=== PATIENT | female | born 1955 | race Caucasian/White ===

== ENCOUNTER → 2016-09-23 | Outpatient (CLI) | payer OTHER ==
[~2016-09-23] MED LIST: CHOL100010 PO; DSY50 PO; OXYC-57 PO; TERI600S SQ; TRAMTAB5 PO; [UNRECOGNIZED DRUG - MIXTURE]
[2016-09-23 18:45] LABS: URINE APPEARANCE CLOUDY (CLEAR); URINE BILIRUBIN NEG (NEG); URINE COLOR YELLOW; URINE NITRITE POS (NEG); URINE SPECIFIC GRAVITY 1.009 (1.000-1.030); UROBILINOGEN NEG (NEG)
[2016-09-23 19:10] LABS: MANUAL MICROSCOPIC REQUIRED? NO; REVIEW REQ? NO
== END | disposition home or self-care (01) ==
LOC: C.LABMFLN 11:41
PROVIDERS: ATTEND Allergy & Immunology Allergy
DX: R39.9 Unspecified symptoms and signs involving the genitourinary system (principal)

== ENCOUNTER → 2016-11-08 | Outpatient (CLI) | payer OTHER ==
--- NOTE | 2016-11-09 13:03 | MAMMOGRAPHY REPORT ---
BILATERAL DIGITAL SCREENING MAMMOGRAM TOMOSYNTHESIS WITH CAD: 11/08/2016 CLINICAL HISTORY: Routine screening examination. TECHNIQUE: Breast tomosynthesis in addition to standard 2D mammography was performed. Current study was also evaluated with a Computer Aided Detection (CAD) system. COMPARISON: Comparison is made to exams dated: 11/04/2015 mammogram, 10/25/2013 mammogram, 10/30/2014 m ammogram, 11/01/2012 ultrasound, 10/01/2010 mammogram, and 09/24/2009 mammogram - [facility]. BREAST COMPOSITION: The tissue of both breasts is heterogeneously dense, which may obscure small ma sses. FINDINGS: There is possible architectural distortion in the lateral anterior left breast, 4.3 cm po sterior to the nipple, only seen on the CC view (CC slice 16), for which additional spot compression to the symphysis HD views and possibly ultrasound are recommended. There are diffuse bilateral punctate microcalcifications and a few benign rim calcifications. No oth er suspicious mass, architectural distortion or cluster of microcalcifications is seen. IMPRESSION: ACR BI-RADS CATEGORY 0: INCOMPLETE EVALUATION: NEED ADDITIONAL IMAGING EVALUATION The possible architectural distortion in the lateral left breast needs additional evaluation. The patient will be called to schedule an appointment. Approximately 10% of breast cancers are not detected with mammography. A negative mammographic repor t should not delay biopsy if a clinically suggestive mass is present. Latia Hartman M.D. ay/:11/08/2016 21:29:21 Foreman/Pile Driving And Erection: Angélica MARCUS(Shereen)(Chandler), [facility] letter sent: Addl Imaging 0 BI-RADS Code: ACR BI-RADS Category 0: Incomplete Evaluation: Need Additional Imaging Evaluation
== END | disposition home or self-care (01) ==
LOC: C.MAMM 09:37
PROVIDERS: ATTEND Internal Medicine Pulmonary Disease
DX: Z12.31 Encounter for screening mammogram for malignant neoplasm of breast (principal)

== ENCOUNTER → 2016-11-17 | Outpatient (CLI) | payer OTHER ==
[2016-11-17 13:28] LABS: URINE APPEARANCE CLEAR (CLEAR); URINE BILIRUBIN NEG (NEG); URINE COLOR YELLOW; URINE EPITHELIAL CELL AUTO 20-30 /lpf (0-5); URINE NITRITE NEG (NEG); URINE SPECIFIC GRAVITY 1.006 (1.000-1.030); UROBILINOGEN NEG (NEG); ZZUR CULT IF INDIC CLEAN CATCH YES
[2016-11-17 13:37] LABS: MANUAL MICROSCOPIC REQUIRED? NO; REVIEW REQ? NO
== END | disposition home or self-care (01) ==
LOC: C.LABMFLN 08:40
PROVIDERS: ATTEND Internal Medicine Pulmonary Disease
DX: N39.0 Urinary tract infection, site not specified (principal)

== ENCOUNTER → 2016-11-22 | Outpatient (CLI) | payer OTHER ==
--- NOTE | 2016-11-23 08:01 | MAMMOGRAPHY REPORT ---
UNILATERAL LEFT DIGITAL DIAGNOSTIC MAMMOGRAM TOMOSYNTHESIS AND TARGETED LEFT ULTRASOUND: 11/22/2016 CLINICAL HISTORY: 60-year-old woman called back from screening mammography for a questionable area o f architectural distortion in the left breast. Family history of breast cancer = mother and aunts. TECHNIQUE: Spot compression CC and MLO tomosynthesis images of the left breast were obtained. COMPARISON: Comparison is made to exams dated: 11/08/2016 mammogram, 11/04/2015 mammogram, 10/30/2014 mammogram, 10/25/2013 mammogram, 11/01/2012 ultrasound, and 09/24/2009 mammogram - [facility]. BREAST COMPOSITION: The tissue of the left breast is heterogeneously dense, which may obscure small masses. FINDINGS: There is no definite persistent architectural distortion on the spot compression CC and ML O views of the left breast. No obvious mass or cluster of suspicious microcalcifications. Further evaluation with ultrasound was performed. Real-time high-resolution sonographic evaluation was performed in the left breast. In the 2:00 axis , 3 cm from the nipple, there is a round hypoechoic solid mass with circumscribed borders and advisory internship al punctate reflectors. It measures 6.9 x 6.0 x 7.0 mm. There is a thin curvilinear rim seen super iorly and this could represent the coarse benign rim calcification seen mammographically. In the 11 :00 periareolar left breast, there is an oval parallel circumscribed hypoechoic solid-appearing mass with internal echogenic septum. This measures 5.8 x 2.9 x 7.5 mm and most likely represents a shubham gn fibroadenoma. In anechoic simple cyst is identified in the 10:00 left breast, 3 cm from the nipp le, measuring 3.9 x 4.6 x 3.8 mm. No definite sonographic correlate was seen to the questionable ef facing architectural distortion in the lateral left breast identified mammographically. IMPRESSION: ACR BI-RADS CATEGORY 0: INCOMPLETE EVALUATION: NEED ADDITIONAL IMAGING EVALUATION, TAR GETED ULTRASOUND ACR BI-RADS CATEGORY 0: INCOMPLETE EVALUATION: NEED ADDITIONAL IMAGING EVALUATION There is probable effacement of the possible architectural distortion in the lateral left breast monse mographically, without a correlate seen on the corresponding MLO spot compression views and no defin ite sonographic correlate identified. Three benign appearing solid and cystic masses are identified on ultrasound. However, given the strong family history of breast cancer, this finding remains ind eterminate, and further evaluation with a breast MRI is recommended to exclude the possibility of a subtle enhancing mass. These results and recommendations were discussed with the patient at the time of the exam. Approximately 10% of breast cancers are not detected with mammography. A negative mammographic repor t should not delay biopsy if a clinically suggestive mass is present. Latia Hartman M.D. ay/:11/22/2016 15:46:02 Yield Improvement Engineer: Erika MARCUS(R)(Chandler), [facility] letter sent: Addl Imaging 0 BI-RADS Code: ACR BI-RADS Category 0: Incomplete Evaluation: Need Additional Imaging Evaluation Ul trasound BI-RADS: ACR BI-RADS Category 0: Incomplete Evaluation: Need Additional Imaging Evaluation
== END | disposition home or self-care (01) ==
LOC: C.MAMM 08:33
PROVIDERS: ATTEND Internal Medicine Pulmonary Disease
DX: N63 Unspecified lump in breast (principal); Z80.3 Family history of malignant neoplasm of breast

== ENCOUNTER → 2016-11-26 | Outpatient (CLI) | payer OTHER ==
[~2016-11-26] MED LIST changes: +GADAVIST IV PRN
--- NOTE | 2016-11-29 14:00 | MAMMOGRAPHY REPORT ---
BREAST MRI OF BOTH BREASTS : 11/26/2016 CLINICAL HISTORY: Questionable architectural distortion seen within the left lateral breast mammogra phically, without a sonographic correlate evident. Family history of breast cancer. COMPARISON: Comparison is made to exams dated: 11/08/2016 mammogram, 11/04/2015 mammogram, 10/30/2014 mammogram, 10/25/2013 mammogram, and 11/01/2012 mammogram - [facility]. Technique: The patient was placed prone in a dedicated breast imaging coil. Precontrast axial T1-we ighted, axial T2-weighted fat saturation, and axial T1-weighted fat saturation images were obtained. After the administration of 6.6 mL of Gadavist IV contrast, sequential T1-weighted fat saturation images were obtained. Subtraction images were obtained of the dynamic contrast enhanced sequences, and 3-D reformations were performed. The [employer] software was used for kinetic analysis. Findings: There is mild background enhancement involving bilateral breasts. There are a few round circumscrib ed T1 hyperintense, nonenhancing masses seen within both breasts, consistent with benign complicated cysts. There are no suspicious enhancing masses or areas of abnormal non-mass enhancement within e ither breast. Specifically, there is no abnormal enhancing mass in the left lateral breast in the r egion of the possible architectural distortion seen mammographically. Given no corresponding MRI ab normality and given effacement of the finding on prior spot compression views, the finding is benign and felt to represent normal fibroglandular tissue. There is no evidence of axillary adenopathy. The chest wall structures are negative. Extramammary soft tissues are unremarkable. IMPRESSION: ACR BI-RADS CATEGORY 2: BENIGN No MRI evidence of malignancy in either breast. No MRI abnormality seen in the region of the questi onable architectural distortion in the left lateral breast mammographically. Given the lack of MRI abnormality and given the effacement on prior spot compression views, findings are benign and felt t o represent normal fibroglandular tissue. Return to annual mammogram screening schedule is recommend ed. Kristie Schultz M.D. /:11/26/2016 16:24:44 Supervisor [employer]: viticulturist, [facility] letter sent: Normal 1/2 BI-RADS Code: ACR BI-RADS Category 2: Benign
== END | disposition home or self-care (01) ==
LOC: C.MRI 06:10
PROVIDERS: ATTEND Internal Medicine Pulmonary Disease
DX: N64.89 Other specified disorders of breast (principal); Z80.3 Family history of malignant neoplasm of breast

== ENCOUNTER → 2017-08-23 | Outpatient (CLI) | payer OTHER ==
[~2017-08-23] MED LIST changes: -GADAVIST IV PRN
[2017-08-23 12:57] LABS: BASO % 0.4 %; BASO ABS # 0.03 K/uL (0-0.2); COMPLETE YES; EOS % 3.5 %; HEMATOCRIT 39.3 % (37-47); IG% 0.1 %; LYMPH % 21.5 %; LYMPH ABS # 1.53 K/uL (1.2-3.4); MEAN CELL VOLUME 97.5 fL (80-100); MEAN CORPUSCULAR HEMOGLOBIN 31.3 pg (25-34); MEAN CORPUSCULAR HGB CONC 32.1 g/dl (32-36); MEAN PLATELET VOLUME 9.8 fL (7.4-10.4); MONO % 8.7 %; NEUT % 65.8 %; PLATELET COUNT 335 K/uL (130-400); RED BLOOD COUNT 4.03 M/uL (4.2-5.4); WHITE BLOOD COUNT 7.12 K/uL (4.8-10.8)
[2017-08-23 13:22] LABS: ALB/GLOB RATIO 1.1 (0.9-2); ALT/SGPT 29 U/L (12-78); AST/SGOT 18 U/L (15-37); BLOOD UREA NITROGEN 16 mg/dl (7-18); BUN/CREATININE RATIO 22.1 (10-20); CALCIUM 9.5 mg/dl (8.5-10.1); CARBON DIOXIDE 29 mmol/L (21-32); CHLORIDE 105 mmol/L (98-107); CREATININE 0.74 mg/dl (0.60-1.20); GLUCOSE 89 mg/dl (70-99); POTASSIUM 3.9 mmol/L (3.5-5.1); SODIUM 137 mmol/L (136-145)
[2017-08-23 13:33] LABS: ALKALINE PHOSPHATASE 75 U/L (45-117); CHOLESTEROL 173 mg/dl (0-200); CHOLESTEROL/HDL RATIO 2.7; HDL CHOLESTEROL 65 mg/dl; LDL CHOLESTEROL CALCULATED 95 mg/dl; THYROID STIMULATING HORMONE 0.626 uIu/ml (0.300-4.500); TRIGLYCERIDES 63 mg/dl (0-150); VERY LOW DENSITY LIPOPROT CALC 13 mg/dl
== END | disposition home or self-care (01) ==
LOC: C.LABMFLN 10:37
PROVIDERS: ATTEND Internal Medicine Pulmonary Disease
DX: G47.00 Insomnia, unspecified (principal); E78.5 Hyperlipidemia, unspecified; S32.010A Wedge compression fracture of first lumbar vertebra, initial encounter for closed fracture; X58.XXXA Exposure to other specified factors, initial encounter; M81.0 Age-related osteoporosis without current pathological fracture; Z87.19 Personal history of other diseases of the digestive system

== ENCOUNTER → 2017-10-14 | Outpatient (CLI) | payer OTHER | END | disposition home or self-care (01) | LOC: C.LABMFLN 10:30 | PROVIDERS: ATTEND Internal Medicine Rheumatology | DX: S32.010A Wedge compression fracture of first lumbar vertebra, initial encounter for closed fracture (principal); M81.0 Age-related osteoporosis without current pathological fracture; E55.9 Vitamin D deficiency, unspecified; X58.XXXA Exposure to other specified factors, initial encounter ==

== ENCOUNTER → 2017-11-10 | Outpatient (CLI) | payer OTHER ==
--- NOTE | 2017-11-11 14:43 | MAMMOGRAPHY REPORT ---
BILATERAL DIGITAL SCREENING MAMMOGRAM TOMOSYNTHESIS WITH CAD: 11/10/2017 CLINICAL HISTORY: Routine screening. Patient has no complaints. TECHNIQUE: Breast tomosynthesis in addition to standard 2D mammography was performed. Current study was also evaluated with a Computer Aided Detection (CAD) system. COMPARISON: Comparison is made to exams dated: 11/26/2016 breast MRI, 11/22/2016 ultrasound, 11/08/2016 mammogram, 11/04/2015 mammogram, 10/30/2014 mammogram, and 10/25/2013 mammogram - [facility]. BREAST COMPOSITION: The tissue of both breasts is heterogeneously dense, which may obscure small mas ses. FINDINGS: There are stable punctate microcalcifications throughout the left greater than right breast . A benign rim calcification in the left upper outer quadrant. No suspicious mass, focal area of ar chitectural distortion or cluster of new, suspicious microcalcifications is seen. IMPRESSION: ACR BI-RADS CATEGORY 1: NEGATIVE There is no mammographic evidence of malignancy. A 1 year screening mammogram is recommended. The pa tient will receive written notification of the results. Approximately 10% of breast cancers are not detected with mammography. A negative mammographic report should not delay biopsy if a clinically suggestive mass is present. Latia Hartman M.D. ay/:11/10/2017 19:44:51 Valve Grinder: Catrina ANGULO)(Chandler), [facility] letter sent: Normal 1/2 BI-RADS Code: ACR BI-RADS Category 1: Negative
== END | disposition home or self-care (01) ==
LOC: C.MAMM 14:22
PROVIDERS: ATTEND Internal Medicine Pulmonary Disease
DX: Z12.31 Encounter for screening mammogram for malignant neoplasm of breast (principal)

== ENCOUNTER 2023-07-24 18:05 | Observation (INO) ==
[2023-07-24] MEDS ORDERED: SODIUM CHLORIDE 0.9% 1,000 ML IV ONE (18:15)
--- NOTE | 2023-07-24 18:24 | Emergency Department Note ---
Impression & Plan Abdominal pain, Constipation ED Provider Note NAME: BRITANY ROY AGE: 67 SEX: F : 1955 ARRIVES VIA: Walk-In INFORMANT: Patient ED PROVIDER(S): Pancho Pradhan DO CHIEF COMPLAINT: abdominal pain HPI: Patient is a 67-year-old female who presents to the ER for abdominal pain. She notes that this has been present for the past 8 days. She has tried Dulcolax, several enemas, MiraLAX and has not been successful. She was seen and evaluated here and discharged following a CT. She denies any headache or change in vision. No chest pain or shortness of breath. She notes her pain is diffuse throughout her abdomen and in the left lower quadrant. No dysuria, urgency, or frequency. No other exacerbating or remitting factors. Additional history was obtained by/from the and other family members who are present at bedside. ADDITIONAL HISTORY OBTAINED: Per HPI Chronic Medical/Social Conditions Affecting Care: Per HPI PAST MEDICAL HISTORY:See Below PAST SURGICAL HISTORY:See Below FAMILY HISTORY:See Below SOCIAL HISTORY:See Below HOME MEDICATIONS:See Below ALLERGIES:See Below VITALS:See Below PHYSICAL EXAMINATION: GENERAL: Sitting up in bed, alert, well appearing, well nourished, no distress, non-toxic EYE EXAM: normal conjunctiva. OROPHARYNX: mucous membranes are moist LUNGS: Clear to auscultation. Normal chest wall mechanics HEART: no murmurs, S1 normal and S2 normal ABDOMEN: abdomen soft, TTP in l mid abd , normo-active bowel sounds, no masses, no rebound or guarding. UPPER EXTREMITIES: upper extremities are grossly normal. LOWER EXTREMITIES: No pitting edema. NEURO EXAM: Normal sensorium, cranial nerves II-XII grossly intact, normal speech, no gross weakness of arms, no gross weakness of legs. MEDICAL DECISION MAKING: Patient is a 67-year-old female who presents ER for left mid abdominal pain. IV was established blood work was obtained. Labs show no significant leukocytosis and mild anemia 11.7 which is consistent with previous. BMP with mild hypokalemia 3.3. LFTs bilirubin was unremarkable. Lipase was normal. UA was clean. CT abdomen pelvis was repeated and showed diverticulitis versus constipation with questionable pancreatic mass. Patient was updated with the significant pain she was having she was given an soapsuds enema, mag citrate, and lactulose with no improvement. She notes that she has tried enemas at home, Dulcolax, MiraLAX in combination with Gatorade and has been unsuccessful. Pain is getting worse. With this I discussed the case with Rachel Browne for further inpatient management treatment. External Records Reviewed: Saw neurology on 05/24 Dr. Zuniga for back pain Consults/Care Managements Discussions: Per MDM Triage Nursing notes reviewed. Limited review of prior medical records performed Vital Signs: reviewed and remarkable for HTN and tachy Differential diagnosis: Differential diagnoses includes but is not limited to gastritis, peptic ulcer disease, GERD, gallbladder disease, pancreatitis, small bowel obstruction, appendicitis, diverticulitis, hernia, urinary tract infection, torsion, perforation, trauma, infectious. ER treatment provided: See below Diagnostics interpreted by me include EKG and cardiac monitoring as listed below: -Cardiac Monitoring: An order was placed for continuous cardiac monitoring. The monitor shows a rate of 101 with sinus rhythm. -ECG: none -Laboratory studies:Interpreted by me as stated above in MDM and shown below. Imaging studies: Xrays: As interpreted by me:none CTs show: CT abdomen pelvis per my review showed no obvious obstruction CT abdomen pelvis per radiology showed constipation Procedures:none Critical Care: None Past Med/Surg History Medical History Sensory polyneuropathy Bilateral hip pain Osteoporosis Hyperlipidemia Surgical History History of benign breast biopsy History of endometrial ablation History of wisdom tooth extraction H/O colonoscopy (~2014) History of total abdominal hysterectomy removal of both ovaries S/P tonsillectomy History of section x2 Family History Mother Breast cancer Father , age 72 of an infection Hypertension Stroke Other No family history of adverse response to anesthesia Social History Smoking Status: Never smoker Tobacco Type: Cigarettes Second Hand Exposure: No; Do You Dip or Chew Tobacco: No; Hx Alcohol Use: No Hx Substance Use: No Preferred Language: Icelandic Communication Ability: Effective Hatch Tender Required: No Beliefs That Will Affect Care: None marital status: Current Living Situation: Spouse current occupational status: employed 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 Feels Safe at Home: Yes Assistive Devices: Contacts and Glasses Allergies Allergies Allergy/AdvReac Type Severity Reaction Status Date / Time amoxicillin Allergy Intermediate Hives Verified 07/24/23 20:38 clavulanic acid Allergy Intermediate Hives Verified 07/24/23 20:38 Penicillins Allergy Intermediate Hives Verified 07/24/23 20:38 Home Meds Home Medications Medication Instructions Recorded Confirmed calcium carb-vit D3-minerals 600 1 tab PO HS 04/13/19 07/24/23 mg calcium-200 unit tablet (Calcium 600 + Minerals) multivitamin (Multiple Vitamins 1 tab PO QAM 10/14/21 07/24/23 tablet) L.acidophil-L.casei-B.bifid-B.longum-FOS 1 cap PO QAM 12/17/22 07/24/23 2 billion cell-50 mg capsule (Probiotic Blend) cholecalciferol (vitamin D3) 50 50 mcg PO HS 12/17/22 07/24/23 mcg (2,000 unit) tablet (Vitamin D3) docusate sodium 100 mg tablet 200 mg PO HS 12/17/22 07/24/23 (Stool Softener) fiber 1 cap PO HS 12/17/22 07/24/23 cyanocobalamin (vitamin B-12) 1,000 mcg PO QAM 07/22/23 07/24/23 1,000 mcg tablet (Vitamin B-12) Previous Rx's Medication Instructions Recorded pravastatin 20 mg tablet 20 mg PO QAM #90 tabs 01/20/23 tramadol 37.5 mg-acetaminophen 325 1 tab PO Q6H PRN pain #120 tabs 02/17/23 mg tablet nortriptyline 50 mg capsule 100 mg (2 x 50 mg) PO HS 30 days 05/17/23 #60 caps oxycodone-acetaminophen 5 mg-325 1 tab PO Q6H PRN pain #30 tabs 06/24/23 mg tablet Results & Data (ED) Vital Signs Vital Signs - 24 hr 07/24/23 18:09 07/24/23 18:40 07/24/23 18:41 Temperature 36.5 C Temperature Source Temporal Artery Scan Pulse Rate 101 H 86 88 Pulse Rate [Bilateral Apical] Pulse Rhythm Regular Respiratory Rate 20 20 Respiratory Effort / Characteristics Non-Labored Spontaneous Respiratory Depth Normal Respiratory Pattern Regular Blood Pressure 166/72 H Blood Pressure [Right Arm] Blood Pressure Mean 103 Blood Pressure Mean [Right Arm] Pulse Oximetry 94 96 Oxygen Delivery Method Room Air Room Air Sepsis Recent Fever Within 48 Hours No Sepsis New/Unexplained Change in Mental Status No Sepsis Action Taken by Nursing No Action Required 07/24/23 19:03 07/24/23 20:26 Temperature Temperature Source Pulse Rate Pulse Rate [Bilateral Apical] 82 80 Pulse Rhythm Respiratory Rate 20 20 Respiratory Effort / Characteristics Respiratory Depth Respiratory Pattern Blood Pressure Blood Pressure [Right Arm] 175/114 H 161/96 H Blood Pressure Mean Blood Pressure Mean [Right Arm] 134 117 Pulse Oximetry 94 98 Oxygen Delivery Method Room Air Room Air Sepsis Recent Fever Within 48 Hours Sepsis New/Unexplained Change in Mental Status Sepsis Action Taken by Nursing Laboratory Data 07/24/23 18:39 07/24/23 18:39 Lab Results 07/24/23 07/24/23 Range/Units 18:28 18:39 WBC 8.06 (4.8-10.8) K/ul RBC 3.69 L (4.20-5.40) M/uL Hgb 11.7 L (12.0-16.0) g/dl Hct 36.3 L (37.0-47.0) % MCV 98.4 (80.0-100.0) fL MCH 31.7 (25.0-34.0) pg MCHC 32.2 (32.0-36.0) g/dL RDW Std Deviation 45.9 (36.4-46.3) fL RDW Coeff of Melita 12.8 (11.5-14.5) % Plt Count 326 (130-400) K/uL MPV 9.5 (9.4-12.4) fL Immature Gran % (Auto) 0.1 % Neut % (Auto) 77.6 % Lymph % (Auto) 14.0 % [place] % (Auto) 5.5 % Eos % (Auto) 2.2 % Baso % (Auto) 0.6 % Neut # (Auto) 6.25 (1.40-6.50) K/uL Lymph # (Auto) 1.13 L (1.20-3.40) K/uL [place] # (Auto) 0.44 (0.11-0.59) K/uL Eos # (Auto) 0.18 (0.00-0.50) K/uL Baso # (Auto) 0.05 (0.00-0.20) K/uL Immature Gran # (Auto) 0.01 (0.01-0.20) K/uL Sodium 138 (136-145) mmol/L Potassium 3.3 L (3.5-5.1) mmol/L Chloride 102 (98-107) mmol/L Carbon Dioxide 29 (21-32) mmol/L Anion Gap 7 (3-11) BUN 13 (6-23) mg/dl Creatinine 0.70 (0.6-1.2) mg/dl Est Cr Clr Drug Dosing 72.1 ml/min Est GFR ( Amer) 105.4 ml/min Est GFR (Non-Af Amer) 90.9 ml/min BUN/Creatinine Ratio 18.6 (10-20) Glucose 158 H (70-99(Fasting)) mg/dl Calcium 9.4 (8.6-10.3) mg/dl Total Bilirubin 0.5 (0.2-1.0) mg/dl AST 34 (13-39) U/L ALT 37 (7-52) U/L Alkaline Phosphatase 81 (34-104) U/L Total Protein 7.3 (6.0-8.3) gm/dl Albumin 4.1 (3.4-5.0) gm/dl Globulin 3.2 (2.5-4.0) gm/dl Albumin/Globulin Ratio 1.3 (0.9-2) Lipase 5 L (11-82) U/L Urine Color Yellow Urine Appearance Clear (Clear) Urine pH 5.5 (4.5-7.5) Ur Specific [place] 1.008 (1.000-1.030) Urine Protein Negative (Negative) Urine Glucose (UA) Negative (Negative) Urine Ketones Negative (Negative) Urine Blood 1+ H (Negative) Urine Nitrite Negative (Negative) Urine Bilirubin Negative (Negative) Urine Urobilinogen Negative (Negative) Ur Leukocyte Esterase Trace H (Negative) Urine WBC (Auto) 1-5 (0-5) /hpf Urine RBC (Auto) 0-4 (0-4) /hpf U Hyaline Cast (Auto) 0 (0-5) /lpf U Epithel Cells (Auto) 0-5 (0-5) /lpf Urine Bacteria (Auto) Negative (Negative) Administered Medications Discontinued Medications Sodium Chloride (Nss) 1,000 mls @ 999 mls/hr IV .Q1H1M ONE Stop: 07/24/23 19:15 Last Infusion: 07/24/23 19:50 Dose: Infused Documented By: Admin: 07/24/23 18:37 Dose: 999 mls/hr Documented By: SOTO Lactulose (Lactulose Syrup 30 Gm/45 Ml Udp) 30 gm PO NOW STA Stop: 07/24/23 19:27 Last Admin: 07/24/23 20:21 Dose: 30 gm Documented By: XANDER Magnesium Citrate (Magnesium Citrate 296 Ml/Btl) 296 ml PO NOW STA Stop: 07/24/23 18:29 Last Admin: 07/24/23 18:36 Dose: 296 ml Documented By: SOTO Imaging Data Radiologist's Impression: Abdomen/Pelvis CT 07/24/23 18:15 CT abd pelvis wo con CLINICAL HISTORY: diffuse abd pain TECHNIQUE: Helical axial images of the abdomen and pelvis were obtained. Automated dose lowering techniques and/or adjustment according to patient size were utilized for this exam. This exam was performed without intravenous contrast. CT DOSE: 937.9 mGy.cm COMPARISON: Comparison is made to CT abdomen pelvis 07/22/2023 FINDINGS: Lower chest: Bibasilar atelectasis versus scarring is seen. Liver: There is an ill-defined hypodensity in the liver measuring approximately 33 mm, compatible with previously noted hemangioma. Gallbladder and biliary tree: Layering radiodense material is seen in the dependent portion of the likely representing sludge. There is enlargement of the common bile duct measuring approximately 13 mm in diameter. Pancreas: Unremarkable, no focal lesions. Spleen: Unremarkable. Adrenals: Unremarkable. Kidneys and ureters: Unremarkable. Bladder: Limited evaluation due to underdistention. Reproductive organs: Unremarkable. Bowel: Numerous diverticula are seen in a redundant sigmoid. There is wall thickening and vascular prominence about the distal sigmoid colon. A large stool burden is seen. The appendix appears unremarkable. There is a dtxih-dh-[id number] hiatal hernia. Lymph nodes Retroperitoneal: Unremarkable. Pelvic: Unremarkable. Mesenteric: Subcentimeter lymph nodes are noted. Peritoneum: Small free fluid is seen in the pelvis. No pneumoperitoneum or drainable fluid collections. Vessels: Unremarkable. Abdominal wall: Unremarkable. Bones: Unremarkable. IMPRESSION: 1. Redemonstration of inflammation about the distal sigmoid colon which may represent stercoral colitis versus diverticulitis without evidence of perforation or abscess. 2. Partial visualization of hepatic hemangioma. 3. Prominence of the biliary system is again noted. If there is clinical concern, ERCP can be performed to exclude underlying obstruction. ACT 112: Negative or not required by law. Electronically signed by: Kevyn Arias M.D. 07/24/2023 7:18 PM Discharge Plan Visit Data Chief Complaint: Constipation Stated Complaint: CONSTIPATION FOR 7-8 DAYS ED Provider: Pancho Pradhan Discharge Problem: Abdominal pain, Constipation Forms Stand Alone Forms: [facility] [employer] Prescriptions Prescriptions: No Action Calcium 600 + Minerals 600 mg calcium- 200 unit tablet 1 tab PO HS tramadol-acetaminophen 37.5-325 mg tablet 1 tab PO Q6H PRN (Reason: pain) Qty: 120 5RF Rx Instructions: OK to fill early nortriptyline 50 mg capsule 100 mg PO HS 30 Days Qty: 60 5RF oxycodone-acetaminophen 5-325 mg tablet 1 tab PO Q6H PRN (Reason: pain) Qty: 30 0RF multivitamin [Multiple Vitamins] Tablet 1 tab PO QAM pravastatin 20 mg tablet 20 mg PO QAM Qty: 90 3RF cyanocobalamin (vitamin B-12) [Vitamin B-12] 1,000 mcg tablet 1,000 mcg PO QAM docusate sodium [Stool Softener] 100 mg Tablet 200 mg PO HS fiber Capsule 1 cap PO HS cholecalciferol (vitamin D3) [Vitamin D3] 50 mcg (2,000 unit) Tablet 50 mcg PO HS Probiotic Blend 2 billion cell-50 mg Capsule 1 cap PO QAM Rx Instructions: give with meal/snack Referrals Referrals: Ashutosh Villarreal MD [Primary Care Provider] - Discharge Problem: Abdominal pain Qualifiers: Abdominal location: unspecified location Qualified Code(s): R10.9 - Unspecified abdominal pain Constipation Qualifiers: Constipation type: unspecified constipation type Qualified Code(s): K59.00 - Constipation, unspecified
[2023-07-24] MEDS ORDERED: MAGNESIUM CITRATE 296 ML/BTL PO STA (18:28)
[2023-07-24 18:42] LABS: Appearance Urine Clear (Clear); Bacteria Urine Automated Negative (Negative); Bilirubin Urine Negative (Negative); Blood Urine 1+ (Negative); Cast Urine Automated 0 /lpf (0-5); Color Urine Yellow; Epithelial Cell Urine Auto 0-5 /lpf (0-5); Glucose Urine UA Negative (Negative); Ketones Urine Negative (Negative); Leukocyte Esterase Urine Trace (Negative); Nitrite Urine Negative (Negative); Protein Urine Negative (Negative); RBC Urine Automated 0-4 /hpf (0-4); Specific Gravity Urine 1.008 (1.000-1.030); Urobilinogen Urine Negative (Negative); pH Urine 5.5 (4.5-7.5)
[2023-07-24 18:56] LABS: Basophils # (auto) 0.05 K/uL (0.00-0.20); Basophils % (auto) 0.6 %; Eosinophils # (auto) 0.18 K/uL (0.00-0.50); Eosinophils % (auto) 2.2 %; Hematocrit (blood only) 36.3 % (37.0-47.0); Hemoglobin 11.7 g/dl (12.0-16.0); Immature Granulocytes # (auto) 0.01 K/uL (0.01-0.20); Immature Granulocytes % (auto) 0.1 %; Lymphocytes # (auto) 1.13 K/uL (1.20-3.40); Mean Corpuscular Hemoglobin 31.7 pg (25.0-34.0); Mean Corpuscular Hgb Conc 32.2 g/dL (32.0-36.0); Mean Corpuscular Volume 98.4 fL (80.0-100.0); Mean Platelet Volume 9.5 fL (9.4-12.4); Monocytes # (auto) 0.44 K/uL (0.11-0.59); Monocytes % (auto) 5.5 %; Neutrophils # (auto) 6.25 K/uL (1.40-6.50); Neutrophils % (auto) 77.6 %; Platelet Count 326 K/uL (130-400); RDW Coefficient of Variation 12.8 % (11.5-14.5); RDW Standard Deviation 45.9 fL (36.4-46.3); Red Blood Count 3.69 M/uL (4.20-5.40); White Blood Count 8.06 K/ul (4.8-10.8)
[2023-07-24 19:15] LABS: Albumin Globulin Ratio 1.3 (0.9-2); Albumin Level 4.1 gm/dl (3.4-5.0); BUN Creatinine Ratio 18.6 (10-20); Bilirubin,Total 0.5 mg/dl (0.2-1.0); Calcium 9.4 mg/dl (8.6-10.3); Creatinine Clr Calc Pharmacy 72.1 ml/min; Est GFR (African American) 105.4 ml/min; Est GFR (Non-African American) 90.9 ml/min; Globulin 3.2 gm/dl (2.5-4.0); Potassium 3.3 mmol/L (3.5-5.1); Total Protein 7.3 gm/dl (6.0-8.3)
--- NOTE | 2023-07-24 19:20 | CT Scan Report ---
CT abd pelvis wo con CLINICAL HISTORY: diffuse abd pain TECHNIQUE: Helical axial images of the abdomen and pelvis were obtained. Automated dose lowering tech niques and/or adjustment according to patient size were utilized for this exam. This exam was perfor med without intravenous contrast. CT DOSE: 937.9 mGy.cm COMPARISON: Comparison is made to CT abdomen pelvis 07/22/2023 FINDINGS: Lower chest: Bibasilar atelectasis versus scarring is seen. Liver: There is an ill-defined hypodensity in the liver measuring approximately 33 mm, compatible wit h previously noted hemangioma. Gallbladder and biliary tree: Layering radiodense material is seen in the dependent portion of the li raad representing sludge. There is enlargement of the common bile duct measuring approximately 13 mm in diameter. Pancreas: Unremarkable, no focal lesions. Spleen: Unremarkable. Adrenals: Unremarkable. Kidneys and ureters: Unremarkable. Bladder: Limited evaluation due to underdistention. Reproductive organs: Unremarkable. Bowel: Numerous diverticula are seen in a redundant sigmoid. There is wall thickening and vascular pr ominence about the distal sigmoid colon. A large stool burden is seen. The appendix appears unremarka ble. There is a khfxq-ck-ovgpyyox hiatal hernia. Lymph nodes Retroperitoneal: Unremarkable. Pelvic: Unremarkable. Mesenteric: Subcentimeter lymph nodes are noted. Peritoneum: Small free fluid is seen in the pelvis. No pneumoperitoneum or drainable fluid collection s. Vessels: Unremarkable. Abdominal wall: Unremarkable. Bones: Unremarkable. IMPRESSION: 1. Redemonstration of inflammation about the distal sigmoid colon which may represent stercoral coli tis versus diverticulitis without evidence of perforation or abscess. 2. Partial visualization of hepatic hemangioma. 3. Prominence of the biliary system is again noted. If there is clinical concern, ERCP can be perfor med to exclude underlying obstruction. ACT 112: Negative or not required by law. Electronically signed by: Kevyn Arias M.D. 07/24/2023 7:18 PM
[2023-07-24] MEDS ORDERED: LACTULOSE SYRUP 30 GM/45 ML UDP PO STA (19:26)
[2023-07-24] MEDS ORDERED: LAVAGE SOLUTION 4000ML PO SCH ×2 (20:45→23:00)
--- NOTE | 2023-07-24 21:32 | History & Physical Report ---
Date of Service July 24, 2023 Assessment & Plan (1) Constipation: Plan: 67yo female presenting with 8 days of constipation. She has received multiple treatments in the ER without success. Most recently ordered Go-Lytely. CT as above with suggestion of stercoral colitis without perforation or abscess. Patient is HD stable without leukocytosis or signs of systemic infection/sepsis. Abdomen is soft. -Observation to medical -Patient is being given GoLytly now - await results -Continue gentle hydration - LR at 100mL/hr + 20mEq KCl for electrolyte repletion -Check Mg and PO4 and replete as needed -Encourage ambulation -Continued bowel regimen with daily glycerin suppository -Dulcolax 10mg po daily -Miralax 17gm po daily -If no success should consider manual and/or endoscopic disimpaction -Will hold Opioid analgesics (2) Common bile duct dilation: Plan: Noted on CT imaging x 2. Sludge present in the gallbladder, no stones reported. Labs are unremarkable - specifically normal WBC, AST/ALT, AP/Tbili and Lipase. -Consider MRCP and further GI workup on an outpatient basis (3) Neuropathy: Plan: Chronic. Stable -Continue Nortriptyline at 100mg po qHS (4) Hyperlipidemia: Plan: Chronic. Stable -Continue Pravastatin 20mg po daily History of Present Illness Chief Complaint: constipation Primary Care Provider: Ashutosh Villarreal MD Leticia Recio is a 67yo female presenting with constipation ongoing x 8 days. She was seen int he ER with this complaint on 07/22/23. At that time she had been constipated x 1 week - she had abdominal aching and fullness. No nausea or vomiting. No additional complaints. Workup included a CT of the abdomen that revealed circumferential thickening of the mid to distal sigmoid colon favoring a stercoral colitis. Also with dilation of the biliary duct and CBD and main pancreatic duct. She was administered an enema in the ER resulting in a bowel m ovement and was subsequently discharged home. Since returning home she has continued to have constipation. Over the last two days she has taken a bottle of Miralax + Gatorade, Fleets Enemas x 2 and daily Dulcolax PO (2 - 4 tablets daily). She has not had another bowel movement. She is passing flatus. She has diffuse abdominal pain as well as some nausea with a small amount of vomiting. She has also had some chills. In the ER she is afebrile, hypertensive otherwise HD stable. She has been given multiple therapies with no results. Prior to 8 days ago patient reports normal bowel habits- daily BM to sometimes more frequent. She takes supplemental fiber. Eats a regular diet. She does not frequently exercise but is on her feet a lot with work. She had a colonoscopy performed on 12/23/22 which had poor preparation diverticulosis in the entire colon with non-bleeding internal hemorrhoids. ER Course: NSS x 1L Magnesium Citrate 296mL (18:36) Lactulose 30gm (20:21) Go-Lytely ordered - not yet given Allergies Allergy/AdvReac Type Severity Reaction Status Date / Time amoxicillin Allergy Intermediate Hives Verified 07/24/23 20:38 clavulanic acid Allergy Intermediate Hives Verified 07/24/23 20:38 Penicillins Allergy Intermediate Hives Verified 07/24/23 20:38 Home Medications Medication Instructions Recorded Confirmed Type calcium carb-vit D3-minerals 600 1 tab PO HS 04/13/19 07/24/23 History mg calcium-200 unit tablet (Calcium 600 + Minerals) multivitamin (Multiple Vitamins 1 tab PO QAM 10/14/21 07/24/23 History tablet) L.acidophil-L.casei-B.bifid-B.longum-FOS 1 cap PO QAM 12/17/22 07/24/23 History 2 billion cell-50 mg capsule (Probiotic Blend) cholecalciferol (vitamin D3) 50 50 mcg PO HS 12/17/22 07/24/23 History mcg (2,000 unit) tablet (Vitamin D3) docusate sodium 100 mg tablet 200 mg PO HS 12/17/22 07/24/23 History (Stool Softener) fiber 1 cap PO HS 12/17/22 07/24/23 History pravastatin 20 mg tablet 20 mg PO QAM #90 tabs 01/20/23 07/24/23 Rx tramadol 37.5 mg-acetaminophen 325 1 tab PO Q6H PRN pain #120 tabs 02/17/23 07/24/23 Rx mg tablet nortriptyline 50 mg capsule 100 mg (2 x 50 mg) PO HS 30 days 05/17/23 07/24/23 Rx #60 caps oxycodone-acetaminophen 5 mg-325 1 tab PO Q6H PRN pain #30 tabs 06/24/23 07/24/23 Rx mg tablet cyanocobalamin (vitamin B-12) 1,000 mcg PO QAM 07/22/23 07/24/23 History 1,000 mcg tablet (Vitamin B-12) Past Med/Surg History Medical History Sensory polyneuropathy Bilateral hip pain Osteoporosis Hyperlipidemia Surgical History History of benign breast biopsy History of endometrial ablation History of wisdom tooth extraction H/O colonoscopy (~2014) History of total abdominal hysterectomy removal of both ovaries S/P tonsillectomy History of section x2 Family History Mother Breast cancer Father , age 72 of an infection Hypertension Stroke Other No family history of adverse response to anesthesia Social History Smoking Status: Never smoker Tobacco Type: Cigarettes Second Hand Exposure: No; Do You Dip or Chew Tobacco: No; Hx Alcohol Use: No Hx Substance Use: No Preferred Language: [place] Communication Ability: Effective Geospatial Program Management Officer Required: No Beliefs That Will Affect Care: None marital status: Current Living Situation: Spouse current occupational status: employed 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 Feels Safe at Home: Yes Assistive Devices: Contacts and Glasses Review of Systems Review of Systems: All systems reviewed & are unremarkable except as noted in HPI & below Physical Exam Physical Exam: General: patient appears uncomfortable, AA&O x 4 Skin: warm, dry, intact, no rashes or lesions HEENT: NC/AT, PERRL, EOMI, anicteric sclera, conjunctiva without injection, external ear normal to inspection and nontender, nares patent, moist mucus membranes, dentition intact, no oropharyngeal lesions, neck supple, trachea midline, no LAD, no thyromegaly, no JVD Heart: +S1/S2, regular, no m/r/g Lungs: equal air entry bilaterally, no rales/rhonchi/wheezes Abd: diminished bowel sounds, abdomen mildly distended, tender to palpation diffusely without rebound/guarding/peritonitis Ext: warm, 2+ pulses in UE/LE bilaterally, no clubbing/cyanosis or edema Neuro: nonfocal, patient AA&O x 4, speech intact, no facial droop, moving all extremities on command with equal strength 5/5 Results & Data Results & Data Vital Signs (Past 12 Hours) Vital Signs Temp Pulse Pulse Resp BP BP Pulse Ox 07/24/23 20:26 80 20 161/96 H 98 07/24/23 19:03 82 20 175/114 H 94 07/24/23 18:41 88 20 96 07/24/23 18:40 86 07/24/23 18:09 36.5 C 101 H 20 166/72 H 94 O2 Del Method 07/24/23 20:26 Room Air 07/24/23 19:03 Room Air 07/24/23 18:41 Room Air 07/24/23 18:40 07/24/23 18:09 Room Air Laboratory Results Laboratory Results WBC 8.06 K/ul (4.8-10.8) 07/24/23 18:39 RBC 3.69 M/uL (4.20-5.40) L 07/24/23 18:39 Hgb 11.7 g/dl (12.0-16.0) L 07/24/23 18:39 Hct 36.3 % (37.0-47.0) L 07/24/23 18:39 MCV 98.4 fL (80.0-100.0) 07/24/23 18:39 MCH 31.7 pg (25.0-34.0) 07/24/23 18:39 MCHC 32.2 g/dL (32.0-36.0) 07/24/23 18:39 RDW Std Deviation 45.9 fL (36.4-46.3) 07/24/23 18:39 RDW Coeff of Melita 12.8 % (11.5-14.5) 07/24/23 18:39 Plt Count 326 K/uL (130-400) 07/24/23 18:39 MPV 9.5 fL (9.4-12.4) 07/24/23 18:39 Immature Gran % (Auto) 0.1 % 07/24/23 18:39 Neut % (Auto) 77.6 % 07/24/23 18:39 Lymph % (Auto) 14.0 % 07/24/23 18:39 [place] % (Auto) 5.5 % 07/24/23 18:39 Eos % (Auto) 2.2 % 07/24/23 18:39 Baso % (Auto) 0.6 % 07/24/23 18:39 Neut # (Auto) 6.25 K/uL (1.40-6.50) 07/24/23 18:39 Lymph # (Auto) 1.13 K/uL (1.20-3.40) L 07/24/23 18:39 [place] # (Auto) 0.44 K/uL (0.11-0.59) 07/24/23 18:39 Eos # (Auto) 0.18 K/uL (0.00-0.50) 07/24/23 18:39 Baso # (Auto) 0.05 K/uL (0.00-0.20) 07/24/23 18:39 Immature Gran # (Auto) 0.01 K/uL (0.01-0.20) 07/24/23 18:39 Sodium 138 mmol/L (136-145) 07/24/23 18:39 Potassium 3.3 mmol/L (3.5-5.1) L 07/24/23 18:39 Chloride 102 mmol/L (98-107) 07/24/23 18:39 Carbon Dioxide 29 mmol/L (21-32) 07/24/23 18:39 Anion Gap 7 (3-11) 07/24/23 18:39 BUN 13 mg/dl (6-23) 07/24/23 18:39 Creatinine 0.70 mg/dl (0.6-1.2) 07/24/23 18:39 Est Cr Clr Drug Dosing 72.1 ml/min 07/24/23 18:39 Est GFR ( Amer) 105.4 ml/min 07/24/23 18:39 Est GFR (Non-Af Amer) 90.9 ml/min 07/24/23 18:39 BUN/Creatinine Ratio 18.6 (10-20) 07/24/23 18:39 Glucose 158 mg/dl (70-99(Fasting)) H 07/24/23 18:39 Calcium 9.4 mg/dl (8.6-10.3) 07/24/23 18:39 Total Bilirubin 0.5 mg/dl (0.2-1.0) 07/24/23 18:39 AST 34 U/L (13-39) 07/24/23 18:39 ALT 37 U/L (7-52) 07/24/23 18:39 Alkaline Phosphatase 81 U/L (34-104) 07/24/23 18:39 Total Protein 7.3 gm/dl (6.0-8.3) 07/24/23 18:39 Albumin 4.1 gm/dl (3.4-5.0) 07/24/23 18:39 Globulin 3.2 gm/dl (2.5-4.0) 07/24/23 18:39 Albumin/Globulin Ratio 1.3 (0.9-2) 07/24/23 18:39 Lipase 5 U/L (11-82) L 07/24/23 18:39 Urine Color Yellow 07/24/23 18:28 Urine Appearance Clear (Clear) 07/24/23 18:28 Urine pH 5.5 (4.5-7.5) 07/24/23 18:28 Ur Specific [place] 1.008 (1.000-1.030) 07/24/23 18:28 Urine Protein Negative (Negative) 07/24/23 18:28 Urine Glucose (UA) Negative (Negative) 07/24/23 18:28 Urine Ketones Negative (Negative) 07/24/23 18:28 Urine Blood 1+ (Negative) H 07/24/23 18:28 Urine Nitrite Negative (Negative) 07/24/23 18:28 Urine Bilirubin Negative (Negative) 07/24/23 18:28 Urine Urobilinogen Negative (Negative) 07/24/23 18:28 Ur Leukocyte Esterase Trace (Negative) H 07/24/23 18:28 Urine WBC (Auto) 1-5 /hpf (0-5) 07/24/23 18:28 Urine RBC (Auto) 0-4 /hpf (0-4) 07/24/23 18:28 U Hyaline Cast (Auto) 0 /lpf (0-5) 07/24/23 18:28 U Epithel Cells (Auto) 0-5 /lpf (0-5) 07/24/23 18:28 Urine Bacteria (Auto) Negative (Negative) 07/24/23 18:28 Impressions Abdomen/Pelvis CT 07/24/23 18:15 CT abd pelvis wo con CLINICAL HISTORY: diffuse abd pain TECHNIQUE: Helical axial images of the abdomen and pelvis were obtained. Automated dose lowering techniques and/or adjustment according to patient size were utilized for this exam. This exam was performed without intravenous contrast. CT DOSE: 937.9 mGy.cm COMPARISON: Comparison is made to CT abdomen pelvis 07/22/2023 FINDINGS: Lower chest: Bibasilar atelectasis versus scarring is seen. Liver: There is an ill-defined hypodensity in the liver measuring approximately 33 mm, compatible with previously noted hemangioma. Gallbladder and biliary tree: Layering radiodense material is seen in the dependent portion of the likely representing sludge. There is enlargement of the common bile duct measuring approximately 13 mm in diameter. Pancreas: Unremarkable, no focal lesions. Spleen: Unremarkable. Adrenals: Unremarkable. Kidneys and ureters: Unremarkable. Bladder: Limited evaluation due to underdistention. Reproductive organs: Unremarkable. Bowel: Numerous diverticula are seen in a redundant sigmoid. There is wall thickening and vascular prominence about the distal sigmoid colon. A large stool burden is seen. The appendix appears unremarkable. There is a ukupa-ww-dkkpwdwr hiatal hernia. Lymph nodes Retroperitoneal: Unremarkable. Pelvic: Unremarkable. Mesenteric: Subcentimeter lymph nodes are noted. Peritoneum: Small free fluid is seen in the pelvis. No pneumoperitoneum or drainable fluid collections. Vessels: Unremarkable. Abdominal wall: Unremarkable. Bones: Unremarkable. IMPRESSION: 1. Redemonstration of inflammation about the distal sigmoid colon which may represent stercoral colitis versus diverticulitis without evidence of perforation or abscess. 2. Partial visualization of hepatic hemangioma. 3. Prominence of the biliary system is again noted. If there is clinical concern, ERCP can be performed to exclude underlying obstruction. ACT 112: Negative or not required by law. Electronically signed by: Kevyn Arias M.D. 07/24/2023 7:18 PM PG Care Time/CCT Total # of Minutes Spent Total Time Spent with Patient: Total time spent is greater than 50% in coordination of care (as documented) at patient's floor/unit and/or counseling patient: Coding Level of Care Code 75980 INT INP/OBS CARE 2/55MIN Diagnoses Constipation K59.00 Constipation type: unspecified constipation type Common bile duct dilation K83.8 Neuropathy G62.9 Hyperlipidemia E78.5 (1) Constipation Constipation type: unspecified constipation type Qualified Code(s): K59.00 - Constipation, unspecified
[2023-07-24] MEDS ORDERED: GLYCERIN ADULT 12 SUPP/BOX SUPP PR ONE (22:12)
[2023-07-24] MEDS ORDERED: ONDANSETRON INJ 2 MG/ML 2 ML VIAL IV PRN (22:12)
[2023-07-24 22:35] LABS: Phosphorus 3.1 mg/dl (2.5-4.9)
[2023-07-24] MEDS: POTASSIUM CHLORIDE 20 MEQ in LACTATED RINGER'S 1,000 ML IV SCH (22:58)
[2023-07-24] MEDS: ACETAMINOPHEN 325 MG TAB PO PRN (22:59)
[2023-07-25] MEDS ORDERED: ACETAMINOPHEN 1,000 MG/100 ML VIAL IV STA (01:03)
[2023-07-25] MEDS: ACETAMINOPHEN 325 MG TAB PO PRN ×2 (03:39→07:50)
[2023-07-25] MEDS: PRAVASTATIN SOD 20 MG TAB PO SCH ×2 (07:51→07:52)
[2023-07-25 07:58] LABS: Hematocrit (blood only) 33.8 % (37.0-47.0); Mean Corpuscular Hemoglobin 31.5 pg (25.0-34.0); Mean Corpuscular Hgb Conc 32.5 g/dL (32.0-36.0); Mean Corpuscular Volume 96.8 fL (80.0-100.0); Mean Platelet Volume 9.6 fL (9.4-12.4); Platelet Count 325 K/uL (130-400); RDW Coefficient of Variation 12.5 % (11.5-14.5); RDW Standard Deviation 44.7 fL (36.4-46.3); Red Blood Count 3.49 M/uL (4.20-5.40); White Blood Count 9.23 K/ul (4.8-10.8)
[2023-07-25 08:17] LABS: BUN Creatinine Ratio 15.4 (10-20); Calcium 8.3 mg/dl (8.6-10.3); Creatinine Clr Calc Pharmacy 96.4 ml/min; Est GFR (African American) 116.2 ml/min; Est GFR (Non-African American) 100.3 ml/min; Potassium 3.7 mmol/L (3.5-5.1)
[2023-07-25] MEDS: POLYETHYLENE (MIRALAX) 17 GM PACK PO SCH (08:37)
[2023-07-25] MEDS: bisacodyL 5 MG TABEC PO SCH (08:38)
[2023-07-25] MEDS: GLYCERIN ADULT 12 SUPP/BOX SUPP PR SCH (08:39)
--- NOTE | 2023-07-25 10:15 | XRay Report ---
KUB HISTORY: Acute generalized abdominal pain with constipation stercoral proctitis COMPARISON: CT 07/24/2023 FINDINGS: Nonobstructive bowel gas pattern. There is moderate gaseous distention of the colon with ex tensive colonic fecal retention. No renal calculi. No ureteral calculi. No pneumoperitoneum or pneum atosis. No fracture. IMPRESSION: Gaseous distention of the large bowel with extensive colonic fecal retention. ACT 112: Negative or not required by law. The above report was generated using voice recognition software. It may contain grammatical, syntax o r spelling errors. Electronically signed by: Clarence Giron M.D. 07/25/2023 10:14 AM
[2023-07-25] MEDS: POTASSIUM CHLORIDE 20 MEQ in LACTATED RINGER'S 1,000 ML IV SCH (11:14)
--- NOTE | 2023-07-25 13:03 | Gastrointestinal Consultation ---
Date of Consultation July 25, 2023 Assessment & Plan (1) Constipation: (2) Abdominal pain: (3) Common bile duct dilation: Plan I had discussed case with Dr. Hill. Would continue with golytely prep to help move stool and she has seen benefit with prep so far. Patient likely had some degree of underlying constipation given the poor prep on prior colonoscopy. she will likely need a better regimen as an outpatient as miralax and stool softeners were not enough. Suspect that percocet use also exacerbated symptoms. As for her CBD dilation, her LFTs are unremarkable. It is possible pain medications could also be causing this. Will check an MRCP. Supervising Physician Co-Signing Physician Notes Agree with BELKYS Hart as above Abd: Soft, Tender, ND, +BS Continue current therapy and supportive care Proceed with MRCP today History of Present Illness Reason for Consultation: CBD dilation / stercoral colitis Requesting Physician: Xavi Montoya MD Attending Physician: Xavi Montoya History of Present Illness Patient is a 67 year old female who presented to the ED with complaints of constipation ongoing for the past 8 days. She was seen in the ER with the same complaint on 07/22/23. At that time she had been constipated x 1 week and admits that she had abdominal aching and fullness. No nausea or vomiting. No additional complaints. Workup included a CT of the abdomen that revealed circumferential thickening of the mid to distal sigmoid colon favoring a stercoral colitis. Also with dilation of the biliary duct and CBD and main pancreatic duct. She was administered an enema in the ER resulting in a bowel movement and was subsequently discharged home. Since returning home she has continued to have constipation and abdominal discomfort. She tells me she has taken Percocet off and on for pain for a while but was using fairly frequently over the past few days. Over the last two days she has taken a bottle of Miralax + Gatorade, Fleets Enemas x 2 and daily Dulcolax PO (2 - 4 tablets daily). She has not had another bowel movement. She is passing flatus. She admits that her usualy regimen for her bowels is miralax in her coffee and stool softeners which she feels worked well until recently. Since admission she was given a bowel prep which she tells me is starting to work and she just recently had what she feels was a good bowel movement. no brbpr or melena. 07/24/23 LFTs and Lipase wnl. 07/25/23 hgb 11, hct 33.8, wbc 9.23, platelets 325. KUB 07/25/23 Gasesous distention of the large bowel with extensive colonic fecal retention. Colonoscopy 12/23/22 poor prep, diverticulosis, internal hemorrhoids. Allergies Allergy/AdvReac Type Severity Reaction Status Date / Time amoxicillin Allergy Intermediate Hives Verified 07/24/23 20:38 clavulanic acid Allergy Intermediate Hives Verified 07/24/23 20:38 Penicillins Allergy Intermediate Hives Verified 07/24/23 20:38 Home Medications Medication Instructions Recorded Confirmed Type calcium carb-vit D3-minerals 600 1 tab PO HS 04/13/19 07/24/23 History mg calcium-200 unit tablet (Calcium 600 + Minerals) multivitamin (Multiple Vitamins 1 tab PO QAM 10/14/21 07/24/23 History tablet) L.acidophil-L.casei-B.bifid-B.longum-FOS 1 cap PO QAM 12/17/22 07/24/23 History 2 billion cell-50 mg capsule (Probiotic Blend) cholecalciferol (vitamin D3) 50 50 mcg PO HS 12/17/22 07/24/23 History mcg (2,000 unit) tablet (Vitamin D3) docusate sodium 100 mg tablet 200 mg PO HS 12/17/22 07/24/23 History (Stool Softener) fiber 1 cap PO HS 12/17/22 07/24/23 History pravastatin 20 mg tablet 20 mg PO QAM #90 tabs 01/20/23 07/24/23 Rx tramadol 37.5 mg-acetaminophen 325 1 tab PO Q6H PRN pain #120 tabs 02/17/23 07/24/23 Rx mg tablet nortriptyline 50 mg capsule 100 mg (2 x 50 mg) PO HS 30 days 05/17/23 07/24/23 Rx #60 caps oxycodone-acetaminophen 5 mg-325 1 tab PO Q6H PRN pain #30 tabs 06/24/23 07/24/23 Rx mg tablet cyanocobalamin (vitamin B-12) 1,000 mcg PO QAM 07/22/23 07/24/23 History 1,000 mcg tablet (Vitamin B-12) Patient History Medical History Sensory polyneuropathy Bilateral hip pain Osteoporosis Hyperlipidemia Surgical History History of benign breast biopsy History of endometrial ablation History of wisdom tooth extraction H/O colonoscopy (~2014) History of total abdominal hysterectomy removal of both ovaries S/P tonsillectomy History of section x2 Family History Mother Breast cancer Father , age 72 of an infection Hypertension Stroke Other No family history of adverse response to anesthesia Social History Smoking Status: Former smoker Tobacco Type: Cigarettes Second Hand Exposure: No; Do You Dip or Chew Tobacco: No; Tobacco Cessation Education Requested by Patient: No Hx Alcohol Use: No Hx Substance Use: No Preferred Language: Yakut Communication Ability: Effective Operator Automated Process Required: No Beliefs That Will Affect Care: None marital status: Current Living Situation: Spouse current occupational status: employed 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 Skin: no rashes, warm and dry Psychiatric: Orientation: alert and oriented x 3 Affect: euthymic affect Results & Data Vital Signs (Past 12 Hours) Vital Signs Temp Pulse Resp BP BP Pulse Ox O2 Del Method 07/25/23 07:49 68 17 167/97 H 07/25/23 07:03 98.1 F 92 H 16 166/108 H 172/105 H 92 Room Air PG Care Time/CCT Total # of Minutes Spent Total Time Spent with Patient: Total time spent is greater than 50% in coordination of care (as documented) at patient's floor/unit and/or counseling patient: Coding Level of Care Code 00661 OFFICE CONSULT LV M Diagnoses Constipation K59.00 Constipation type: unspecified constipation type Abdominal pain R10.9 Abdominal location: unspecified location Common bile duct dilation K83.8 Time Spent (min) 45 (1) Constipation Constipation type: unspecified constipation type Qualified Code(s): K59.00 - Constipation, unspecified (2) Abdominal pain Abdominal location: unspecified location Qualified Code(s): R10.9 - Unspecified abdominal pain
[2023-07-25] MEDS: ACETAMINOPHEN 325 MG TAB PO SCH ×2 (14:45→22:06)
[2023-07-25] MEDS ORDERED: diphenhydrAMINE Capsule 25 MG CAP PO ONE (20:44)
[2023-07-25] MEDS ORDERED: NORTRIPTYLINE HCL 25 MG CAP PO SCH (21:00)
--- NOTE | 2023-07-25 21:50 | Hospitalist Progress Note ---
Date of Service July 25, 2023 Assessment & Plan (1) Constipation: Plan: 67yo female presenting with 8 days of constipation. She has received multiple treatments in the ER without success. Most recently ordered Go-Lytely. CT as above with suggestion of stercoral colitis without perforation or abscess. Patient is HD stable without leukocytosis or signs of systemic infection/sepsis. Abdomen is soft. -Observation to medical -Patient is being given GoLytly now - await results -Continue gentle hydration - LR at 100mL/hr + 20mEq KCl for electrolyte repletion -Check Mg and PO4 and replete as needed -Encourage ambulation -Continued bowel regimen with daily glycerin suppository -Dulcolax 10mg po daily -Miralax 17gm po daily -Patient had a large bowel movemen will continue to monitor. -Will hold Opioid analgesics (2) Common bile duct dilation: Plan: Noted on CT imaging x 2. Sludge present in the gallbladder, no stones reported. Labs are unremarkable - specifically normal WBC, AST/ALT, AP/Tbili and Lipase. Consulted GI. Ordered MRCP (3) Neuropathy: Plan: Chronic. Stable -Continue Nortriptyline at 100mg po qHS (4) Hyperlipidemia: Plan: Chronic. Stable -Continue Pravastatin 20mg po daily Admission and Anticipated Discharge Date Admission Date: July 24, 2023 Subjective Patient reports having multiple large bowel movements. Review of Systems Review of Systems: All systems reviewed & are unremarkable except as noted in HPI & below Physical Exam Physical Exam: General: patient appears comfortable, AA&O x 4 Skin: warm HEENT: NC/AT Heart: +S1/S2, regular, no m/r/g Lungs: equal air entry bilaterally, no rales/rhonchi/wheezes Abd: diminished bowel sounds, soft, non tender. Ext: warm, 2+ pulses in UE/LE bilaterally, no clubbing/cyanosis or edema Neuro: nonfocal, patient AA&O x 4 Results & Data Results & Data Vital Signs (Past 12 Hours) Vital Signs Temp Pulse Resp BP BP Pulse Ox O2 Del Method 07/25/23 20:37 36.4 C L 87 18 157/94 H 94 Room Air 07/25/23 14:38 36.8 C 95 H 18 161/95 H 93 Room Air PG Care Time/CCT Total # of Minutes Spent Total Time Spent with Patient: Total time spent is greater than 50% in coordination of care (as documented) at patient's floor/unit and/or counseling patient: Coding Level of Care Code 14555 SUB INP/OBS CARE 2/35MIN Diagnoses Constipation K59.00 Constipation type: unspecified constipation type Common bile duct dilation K83.8 Neuropathy G62.9 Hyperlipidemia E78.5 (1) Constipation Constipation type: unspecified constipation type Qualified Code(s): K59.00 - Constipation, unspecified
[2023-07-26 08:00] LABS: Hematocrit (blood only) 34.8 % (37.0-47.0); Hemoglobin 11.3 g/dl (12.0-16.0); Mean Corpuscular Hemoglobin 31.7 pg (25.0-34.0); Mean Corpuscular Hgb Conc 32.5 g/dL (32.0-36.0); Mean Corpuscular Volume 97.8 fL (80.0-100.0); Mean Platelet Volume 9.5 fL (9.4-12.4); Platelet Count 349 K/uL (130-400); RDW Coefficient of Variation 12.5 % (11.5-14.5); Red Blood Count 3.56 M/uL (4.20-5.40); White Blood Count 6.35 K/ul (4.8-10.8)
[2023-07-26 08:17] LABS: Albumin Globulin Ratio 1.3 (0.9-2); Albumin Level 3.5 gm/dl (3.4-5.0); BUN Creatinine Ratio 11.5 (10-20); Bilirubin,Total 0.6 mg/dl (0.2-1.0); Calcium 8.3 mg/dl (8.6-10.3); Creatinine Clr Calc Pharmacy 82.2 ml/min; Est GFR (African American) 110.3 ml/min; Est GFR (Non-African American) 95.1 ml/min; Globulin 2.8 gm/dl (2.5-4.0); Potassium 3.9 mmol/L (3.5-5.1); Total Protein 6.3 gm/dl (6.0-8.3)
--- NOTE | 2023-07-26 09:52 | Gastroenterology Progress Note ---
Date of Service July 26, 2023 Assessment & Plan (1) Constipation: (2) Abdominal pain: (3) Common bile duct dilation: Plan - We discussed a better bowel regimen as outpatient. We discussed increasing her dose of miralax up to TID dosing. we discussed we can see how she does with this and as outpatient can assess the need to trial alternatives. - MRCP results are pending though lfts are normal. - patient is requesting to go home this morning. I am having our office work on scheduling a follow up appointment for 2 weeks at her request. Admission and Anticipated Discharge Date Admission Date: July 24, 2023 Subjective Patient feeling significantly better after bowel prep. she tells me she had several good bowel movements with this. still some abdominal tenderness that is diffuse but overall, much improved. Last bowel movement was this morning. no bleeding or melena. she denies any nausea, vomiting, heartburn, dysphagia. She underwent MRCP this morning for the dilated common bile duct, results are pending. 07/26/23 LFTs unremarkable. she is hoping to be discharged to home today. Physical Exam Constitutional: WD/WN, vitals as above Respiratory: normal respiratory effort, lungs clear to auscultation Cardiovascular: RRR, no murmur, no edema Gastrointestinal (Abdomen): mild diffuse tenderness, no guarding, soft, nondistended. normal bowel sounds Skin: no rashes, warm and dry Psychiatric: Orientation: alert and oriented x 3 Affect: euthymic affect Results & Data Results & Data Vital Signs (Past 12 Hours) Vital Signs Temp Pulse Resp BP Pulse Ox O2 Del Method 07/26/23 07:25 98.1 F 92 H 18 148/88 H 93 Room Air PG Care Time/CCT Total # of Minutes Spent Total Time Spent with Patient: Total time spent is greater than 50% in coordination of care (as documented) at patient's floor/unit and/or counseling patient: Coding Level of Care Code 04432 SUB INP/OBS CARE 10/13MIN Diagnoses Constipation K59.00 Constipation type: unspecified constipation type Abdominal pain R10.9 Abdominal location: unspecified location Common bile duct dilation K83.8 Time Spent (min) 27 (1) Constipation Constipation type: unspecified constipation type Qualified Code(s): K59.00 - Constipation, unspecified (2) Abdominal pain Abdominal location: unspecified location Qualified Code(s): R10.9 - Unspecified abdominal pain
--- NOTE | 2023-07-26 11:02 | Discharge Summary ---
Date of Service July 26, 2023 Admission HPI Per Admitting Provider Leticia Recio is a 67yo female presenting with constipation ongoing x 8 days. She was seen int he ER with this complaint on 07/22/23. At that time she had been constipated x 1 week - she had abdominal aching and fullness. No nausea or vomiting. No additional complaints. Workup included a CT of the abdomen that revealed circumferential thickening of the mid to distal sigmoid colon favoring a stercoral colitis. Also with dilation of the biliary duct and CBD and main pancreatic duct. She was administered an enema in the ER resulting in a bowel movement and was subsequently discharged home. Since returning home she has continued to have constipation. Over the last two days she has taken a bottle of Miralax + Gatorade, Fleets Enemas x 2 and daily Dulcolax PO (2 - 4 tablets daily). She has not had another bowel movement. She is passing flatus. She has diffuse abdominal pain as well as some nausea with a small amount of vomiting. She has also had some chills. In the ER she is afebrile, hypertensive otherwise HD stable. She has been given multiple therapies with no results. Prior to 8 days ago patient reports normal bowel habits- daily BM to sometimes more frequent. She takes supplemental fiber. Eats a regular diet. She does not frequently exercise but is on her feet a lot with work. She had a colonoscopy performed on 12/23/22 which had poor preparation diverticulosis in the entire colon with non-bleeding internal hemorrhoids. ER Course: NSS x 1L Magnesium Citrate 296mL (18:36) Lactulose 30gm (20:21) Go-Lytely ordered - not yet given Discharge Data Allergies Allergy/AdvReac Type Severity Reaction Status Date / Time amoxicillin Allergy Intermediate Hives Verified 07/24/23 20:38 clavulanic acid Allergy Intermediate Hives Verified 07/24/23 20:38 Penicillins Allergy Intermediate Hives Verified 07/24/23 20:38 Consultations 07/25/23 12:19 Consult Gastroenterology Routine Ordered Studies 07/24/23 18:15 CT abd pelvis wo con Stat 07/26/23 07:00 MR MRCP Routine Hospital Course (1) Constipation: 67yo female presenting with 8 days of constipation. She has received multiple treatments in the ER without success. Most recently ordered Go-Lytely. CT as above with suggestion of stercoral colitis without perforation or abscess. Patient is HD stable without leukocytosis or signs of systemic infection/sepsis. Abdomen is soft. -Observation to medical -Patient is being given GoLytly now - await results -Continue gentle hydration - LR at 100mL/hr + 20mEq KCl for electrolyte repletion -Check Mg and PO4 and replete as needed -Encourage ambulation -Continued bowel regimen with daily glycerin suppository -Dulcolax 10mg po daily -Miralax 17gm po daily -Patient had a large bowel movemen will continue to monitor. -Will hold Opioid analgesics (2) Common bile duct dilation: Noted on CT imaging x 2. Sludge present in the gallbladder, no stones reported. Labs are unremarkable - specifically normal WBC, AST/ALT, AP/Tbili and Lipase. Consulted GI. Ordered MRCP (3) Neuropathy: Chronic. Stable -Continue Nortriptyline at 100mg po qHS (4) Hyperlipidemia: Chronic. Stable -Continue Pravastatin 20mg po daily Discharge Plan Discharge Items Patient Disposition: Home - Self-Care Reason For Visit: CONSTIPATION Discharge Diagnosis: constipation Activity: Resume your previous activity Non-emergency contact: Primary Care Provider Call non-emergency contact if: you have any medication questions Follow-up/Referrals: Ashutosh Villarreal MD [Primary Care Provider] - 08/01/23 1:30 pm Diet: Regular Addtl Attending Provider Instructions: Recommend holding percocet and tramadol. Will recommend using miralax once daily. If no BM, can take an extra dose in the evening. Recommend close followup with PCP in 1-2 weeks. Pending Studies at Discharge: No Stand-Alone Forms: My [facility] [employer], Smoking Cessation Medications and DC Order Prescriptions: New acetaminophen 325 mg Tablet 650 mg PO QID Qty: 240 0RF polyethylene glycol 3350 [Miralax] 17 gram Powder In Packet 17 g PO DAILY Qty: 14 0RF sennosides-docusate sodium [Senna with Docusate Sodium] 8.6-50 mg tablet 1 tab-cap PO DAILY Qty: 30 0RF Continued Calcium 600 + Minerals 600 mg calcium- 200 unit tablet 1 tab PO HS nortriptyline 50 mg capsule 100 mg PO HS 30 Days Qty: 60 5RF multivitamin [Multiple Vitamins] Tablet 1 tab PO QAM pravastatin 20 mg tablet 20 mg PO QAM Qty: 90 3RF cyanocobalamin (vitamin B-12) [Vitamin B-12] 1,000 mcg tablet 1,000 mcg PO QAM fiber Capsule 1 cap PO HS cholecalciferol (vitamin D3) [Vitamin D3] 50 mcg (2,000 unit) Tablet 50 mcg PO HS Probiotic Blend 2 billion cell-50 mg Capsule 1 cap PO QAM Rx Instructions: give with meal/snack Held tramadol-acetaminophen 37.5-325 mg tablet 1 tab PO Q6H PRN (Reason: pain) Qty: 120 5RF Hold Instructions: Resume on 08/02/23. hold until followup Rx Instructions: OK to fill early oxycodone-acetaminophen 5-325 mg tablet 1 tab PO Q6H PRN (Reason: pain) Qty: 30 0RF Hold Instructions: Resume on 08/02/23. hold until followup Discontinued docusate sodium [Stool Softener] 100 mg Tablet 200 mg PO HS Discharge Orders: Discharge Order (Routine); Ordered 07/26/23 Ordered By: Xavi Montoya Admission Data Admit Date/Time: 07/24/23 21:22 Attending Provider: Xavi Montoya Admit Provider: Janee Browne Primary Care Provider: Ashutosh Villarreal Other Providers: Kendall Awad; Crescencio Hill; Lety Dolan; Sweta Webber; Yoseph Hicks Janet R.; Avtar Corado; José Luis Beltran; Greg Russell; Flory Barrera; Dena Durham; Yuri Obregon; Armida Peoples; Annie Hassan; Abeba Oliveira; Shahnaz Sanchez; Wesley Gregory; Maurilio Starr; Seth Fischer; Obdulia Cedeno; Meagan Eldridge Jr Coding Diagnoses Constipation K59.00 Constipation type: unspecified constipation type Common bile duct dilation K83.8 Neuropathy G62.9 Hyperlipidemia E78.5
--- NOTE | 2023-07-26 11:12 | Magnetic Resonance Report ---
MR MRCP HISTORY: 67 years-old Female dilated CBD Acute upper abdominal pain. COMPARISON: CT 07/24/2023, 07/22/2023. TECHNIQUE: MRCP without the use of IV contrast was obtained according to institutional protocol. FINDINGS: Chronic-appearing moderate L1 compression deformity with mild retropulsion. Trace pleural effusions w ith bibasilar atelectasis. Fecal retention with colonic diverticulosis. Trace free pelvic fluid. There are a few indeterminate likely benign T2 hyperintense lesions of the superior spleen measuring up to 9 mm suggestive of cysts. Unremarkable adrenal glands. Pancreatic duct measures 3 mm. There is decreased distention of the common bile duct compared to the prior study, now measuring 9 mm. No obst ructing biliary or pancreatic lesion or stone identified, however the study is motion degraded. Mildl y distended gallbladder. No definite cholelithiasis or gallbladder wall thickening. A 3 cm inferior r ight hepatic lobe hemangioma is redemonstrated. No hydronephrosis. Unremarkable abdominal aorta and IVC. No lymphadenopathy. IMPRESSION: 1. Mildly motion degraded exam. 2. There is decreased common bile duct and pancreatic distention compared to the 07/22/2023 study. No obstructing biliary stone or lesion is identified. 3. Mildly distended gallbladder without cholelithiasis identified. 4. Trace ascites with trace pleural effusions. ACT 112: Negative or not required by law. The above report was generated using voice recognition software. It may contain grammatical, syntax o r spelling errors. Dictated: 07/26/2023 10:19 AM Transcribed: 07/26/2023 10:58 AM [email or web address] [id number] [email or web address] Electronically signed by: Clarence Giron M.D. 07/26/2023 11:11 AM
[2023-07-26] MEDS: bisacodyL 5 MG TABEC PO SCH (11:16)
[2023-07-26] MEDS: ACETAMINOPHEN 325 MG TAB PO SCH (11:16)
[2023-07-26] MEDS: POLYETHYLENE (MIRALAX) 17 GM PACK PO SCH (11:16)
[2023-07-26] MEDS: GLYCERIN ADULT 12 SUPP/BOX SUPP PR SCH (11:16)
[2023-07-26] MEDS: PRAVASTATIN SOD 20 MG TAB PO SCH (11:17)
== END 2023-07-26 11:46 | disposition home or self-care (01) ==
LOC: ED 18:05 → 3N 18:05 → SUATTDRO 21:22 → 3N 21:52